=== PATIENT | male | born 1945 | race Caucasian/White ===

== ENCOUNTER 2017-06-06 09:43 | Day surgery (SDC) | payer OTHER ==
[~2017-06-06] VITALS: Ht 185.4 cm; Wt 101.8 kg
[~2017-06-06 09:43] MED LIST: Advair Hfa 230-12 GM; HYDCHL12.5; LEVSOD88
== END 2017-06-06 11:36 | disposition home or self-care (01) ==
LOC: ORSCSDS 09:43
PROVIDERS: Internal Medicine Gastroenterology
PROC: 0DJD8ZZ Inspection of Lower Intestinal Tract, Via Natural or Artificial Opening Endoscopic (ICD-10-PCS; principal; 2017-06-06 11:00)
DX: Z86.010 Personal history of colon polyps (principal); K57.30 Diverticulosis of large intestine without perforation or abscess without bleeding; E03.9 Hypothyroidism, unspecified; I10 Essential (primary) hypertension; Z79.899 Other long term (current) drug therapy
CPT/HCPCS: J7120

== ENCOUNTER → 2018-05-08 | Outpatient (CLI) | payer OTHER | END | disposition home or self-care (01) | LOC: LAB SHORT 14:12 → PLD 14:12 | DX: C44.329 Squamous cell carcinoma of skin of other parts of face (principal) | CPT/HCPCS: 88305 ==

== ENCOUNTER → 2020-07-19 | Outpatient (CLI) | payer OTHER | END | disposition home or self-care (01) | LOC: LAB SHORT 12:58 → LAB 12:58 | DX: D48.5 Neoplasm of uncertain behavior of skin (principal) | CPT/HCPCS: 88305 ==

== ENCOUNTER → 2020-12-22 | Outpatient (CLI) | payer OTHER | END | disposition home or self-care (01) | LOC: LAB SHORT 12:48 → LAB 12:48 | DX: L82.1 Other seborrheic keratosis (principal); C44.629 Squamous cell carcinoma of skin of left upper limb, including shoulder | CPT/HCPCS: 88305 ==

== ENCOUNTER → 2022-06-07 | Outpatient (CLI) | payer OTHER | END | disposition home or self-care (01) | LOC: LAB SHORT 11:25 → PLD 11:25 | DX: D48.5 Neoplasm of uncertain behavior of skin (principal) | CPT/HCPCS: 88305 ==

== ENCOUNTER → 2022-07-05 | Outpatient (CLI) | payer OTHER | END | disposition home or self-care (01) | LOC: LAB 15:00 → LAB SHORT 15:00 | DX: C44.42 Squamous cell carcinoma of skin of scalp and neck (principal) | CPT/HCPCS: 88305 ==

== ENCOUNTER → 2023-04-26 | Outpatient (CLI) | payer OTHER | LOC: LAB SHORT 11:52 → PLD 11:52 | DX: D48.5 Neoplasm of uncertain behavior of skin (principal) | CPT/HCPCS: 88305 ==

== ENCOUNTER 2023-05-23 14:07 | Day surgery (SDC) | payer OTHER ==
[~2023-05-23] VITALS: Ht 182.9 cm; Wt 98.9 kg
[~2023-05-23 14:07] MED LIST changes: -HYDCHL12.5; +LEVOTHYROXINE125 MC9 PO; -LEVSOD88; +LISINOPRIL-HCT1 EACH PO
--- NOTE | 2023-05-23 14:46 | NUR ---
05/23/23 1446 Nemo Saenz PROPARACAINE PLACED IN RIGHT EYE AT 1438. PLEDGET PLACED IN RIGHT EYE AT 1439. PT TOLERATED WELL.
[2023-05-23 15:51] VITALS: BP 118/72
== END 2023-05-23 16:10 | disposition home or self-care (01) ==
LOC: ORSCSDS 14:07
PROVIDERS: Ophthalmology
PROC: 08RJ3JZ Replacement of Right Lens with Synthetic Substitute, Percutaneous Approach (ICD-10-PCS; principal; 2023-05-23 15:30)
DX: H25.13 Age-related nuclear cataract, bilateral (principal); I10 Essential (primary) hypertension; Z79.899 Other long term (current) drug therapy
CPT/HCPCS: J2001; J2250; J3010; J3301; J7040; V2632

== ENCOUNTER 2023-05-31 08:02 | Day surgery (SDC) | payer OTHER ==
[~2023-05-31] VITALS: Ht 182.9 cm; Wt 98.1 kg
[2023-05-31 09:50] VITALS: BP 132/67
== END 2023-05-31 10:10 | disposition home or self-care (01) ==
LOC: ORSCSDS 08:02
PROVIDERS: Ophthalmology
PROC: 08RK3JZ Replacement of Left Lens with Synthetic Substitute, Percutaneous Approach (ICD-10-PCS; principal; 2023-05-31 09:30)
DX: H25.12 Age-related nuclear cataract, left eye (principal); Z96.1 Presence of intraocular lens; I10 Essential (primary) hypertension; E07.9 Disorder of thyroid, unspecified; Z79.899 Other long term (current) drug therapy
CPT/HCPCS: J2001; J2250; J3010; J3301; J7040; V2632